=== PATIENT | male | born 2000 | race Two or more races ===

== ENCOUNTER 2020-09-23 14:05 | Outpatient (REF) | payer OTHER, SELFPAY | END 2020-09-23 14:06 | disposition home or self-care (01) | LOC: HO.LAB 14:05 | PROVIDERS: Visit Provider Internal Medicine | DX: Z20.828 Contact with and (suspected) exposure to other viral communicable diseases (principal) | CPT/HCPCS: C9803; U0003 ==

== ENCOUNTER 2021-01-15 10:04 | Emergency (ER) | payer OTHER, SELFPAY ==
[2021-01-15 10:27] VITALS: BP 139/89; PULSE 84; RESP 18; TEMP 36.9; O2SAT 97; BMI 32.8
--- NOTE | 2021-01-15 10:33 | ED.GENADULT ---
HPI - General Adult General Chief complaint: General Medical Stated complaint: COUGH FEVER Time Seen by Provider: 01/15/21 10:31 Source: patient Mode of arrival: ambulatory Limitations: no limitations History of Present Illness HPI narrative: 20-year-old male here with body aches, subjective fevers headaches x3 days. No chest pain, shortness of breath, cough, vomiting, diarrhea, abdominal pain. 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 Denies any known sick contacts Related Data Allergies Allergy/AdvReac Type Severity Reaction Status Date / Time No Known Allergies Allergy Unverified 06/30/20 16:40 Review of Systems Review of Systems: Yes all other systems are reviewed and are negative Constitutional: Constitutional: Reports no additional constitutional complaints, Reports body ache(s), Denies chills, Reports fever(s), Reports headache(s) and Denies weakness Eyes: Eyes: Reports no additional eye complaints and Denies change in vision ENT: Reports system reviewed and no additional complaints, except as documented, Denies dizziness, Reports headache(s), Denies nasal congestion, Denies nasal discharge and Denies neck pain Cardiovascular: Cardiovascular: Reports no additional cardiovascular complaints, Denies chest pain, Denies leg edema and Denies dyspnea Respiratory: Respiratory: Reports no additional respiratory complaints, Denies cough and Denies dyspnea Gastrointestinal: Gastrointestinal: Reports no additional gastrointestinal complaints, Denies abdominal pain, Denies diarrhea, Denies nausea and Denies vomiting Genitourinary: Genitourinary: Denies urinary incontinence Musculoskeletal: Musculoskeletal: Reports no additional musculoskeletal complaints, Denies back pain, Denies arthralgias, Denies joint swelling, Denies neck pain, Denies numbness and Denies tingling Integumentary/Breasts: Skin/Breast: Reports system reviewed and no additional complaints, except as docu and Denies rash Neurologic: Reports system reviewed and no additional complaints, except as documented, Denies Abnormal speech present, Denies dizziness, Reports headache(s), Denies numbness, Denies tingling and Denies weakness PMFSH Past Medical History Attestation statement: The following information was validated with the patient. Source: old records reviewed and nursing notes reviewed Medical History No known health problems Social History Social History Advance Directives: Yes Advance Directives Information Provided: No Advance Directives on File: No Physical Exam Vital Signs: Vital Signs: Last Vital Signs Temp 98.4 F 01/15/21 10:27 Pulse 84 01/15/21 10:27 Resp 18 01/15/21 10:27 BP 139/89 01/15/21 10:27 Pulse Ox 97 01/15/21 10:27 Body Mass Index 32.8 Const: General: cooperative, healthy appearing, comfortable and no acute distress Orientation/consciousness: patient oriented x3 Limitations: no limitations HENMT: Head: Yes normal to inspection Ears: hearing grossly normal bilaterally General nose exam: Normal external nose present Face and sinus: Yes normal facial exam Mouth: Normal oral and palatal mucosa present Throat: Yes posterior oropharynx normal Eyes: General: appearance normal, both eyes and all related structures Pupils: Equal, round and reactive pupils present Neck: Neck: Yes normal visual inspection Chest: Chest palpation & inspection: normal inspection of the chest Resp: Effort & Inspection: normal respiratory effort Auscultation: clear to auscultation bilaterally Cardio: Rate: regular rate Rhythm: regular rhythm Peripheral pulses: Peripheral pulses 2+ throughout GI: Inspection: Yes normal to inspection Palpation (GI): Soft to palpation and nontender Auscultation: normal bowel sounds Back/Spine/Pelvis: Thoracic/Lumbar Spine: thoracic and lumbar spine normal to inspection Skin: General skin exam: no rashes or lesions noted Neuro: General: patient oriented x3, no focal motor deficits and normal sensation to monofilament Cranial nerves: Yes Equal, round and reactive pupils present Cognition (Neuro): normal cognition Speech: No Abnormal speech present Gait exam (Neuro): Normal gait present Motor exam (neuro): 5/5 motor strength present throughout Extrem: General: Yes normal to inspection Course Course Course Narrative: flu like symptoms x 3 days. HD stable, well appearing. Will check COVID screen. 1130-COVID screen negative. Likely viral syndrome however ?false negative. Recommend repeat test in 3-4 days if continuing to have symptoms. reviewed worrisome signs.symptoms with patient and when to return to the ED. Comfortable with discharge home. Medical Decision Making Medical Records Medical records reviewed: Yes I reviewed the patient's medical records. Lab Data Lab results reviewed: Yes I reviewed the patient's lab results. Labs: Lab Results 01/15/21 Range/Units 10:39 COVID-19 ([facility]) Negative (Negative) COVID-19 Clin Com See Note Discharge Plan Discharge Clinical Impression: Viral infection Patient Disposition: Home, Self-Care Instructions: Viral Syndrome (ED) Additional Instructions: Increase fluids, rest Take Motrin or Tylenol if able as needed for pain or fever Your test today for COVID-19 was negative. However we recommend going home and quarantine and retesting and 3-4 days if you continue to have symptoms. This may be a false negative Referrals: Physician,Unknown [Primary Care Provider] - 2 days Stand Alone Forms: Work/School Release Interventions: ED Discharge Assessment Last Done: 01/15/21 11:42 Discharge Date/Time: 01/15/21 11:42
[2021-01-15 11:04] LABS: COVID-19 Test Negative (Negative); IDNOW Serial# 9DD0AD1C
== END 2021-01-15 11:42 | disposition home or self-care (01) ==
PROVIDERS: Nurse Practitioner Family; Emergency Provider Emergency Medicine
DX: B34.9 Viral infection, unspecified (principal); Z20.822 Contact with and (suspected) exposure to COVID-19; R05 Cough; R50.9 Fever, unspecified
CPT/HCPCS: 36415; 87635; 99283

== ENCOUNTER 2021-08-04 08:41 | Emergency (ER) | payer OTHER, SELFPAY ==
[2021-08-04 08:46] VITALS: BP 134/82; PULSE 70; RESP 18; TEMP 36.4; O2SAT 99; BMI 28.1
--- NOTE | 2021-08-04 09:04 | ED_ITS ---
HPI - Skin/Abscess/Foreign Bdy General Chief complaint: Skin/Abscess/Foreign Body Stated complaint: q tip stuck in ear Time Seen by Provider: 08/04/21 09:04 Source: patient Mode of arrival: ambulatory Limitations: no limitations History of Present Illness HPI narrative: qtip cotton left in his right ear Onset (ago): minute(s) Tetanus up to date: yes Severity: mild Pain Consistency: constant Associated symptoms: denies other symptoms Related Data Allergies Allergy/AdvReac Type Severity Reaction Status Date / Time No Known Allergies Allergy Unverified 06/30/20 16:40 Review of Systems Constitutional: Constitutional: Reports no additional constitutional complaints Eyes: Eyes: Reports no additional eye complaints ENT: Denies dizziness Cardiovascular: Cardiovascular: Reports no additional cardiovascular complaints Respiratory: Respiratory: Reports as per HPI Gastrointestinal: Gastrointestinal: Reports no additional gastrointestinal complaints Musculoskeletal: Musculoskeletal: Reports no additional musculoskeletal complaints Integumentary/Breasts: Skin/Breast: Denies rash Neurologic: Reports system reviewed and no additional complaints, except as documented, Denies dizziness and Denies Sensory deficit (Neuro) Psychiatric: Psychiatric: Denies anxiety [facility] Past Medical History Medical History No known health problems Social History Social History Advance Directives: No Physical Exam Vital Signs: Vital Signs: Last Vital Signs Temp 97.5 F 08/04/21 08:46 Pulse 70 08/04/21 08:46 Resp 18 08/04/21 08:46 BP 134/82 08/04/21 08:46 Pulse Ox 99 08/04/21 08:46 Body Mass Index 28.1 Const: General: healthy appearing Nutritional Appearance: average body habitus Orientation/consciousness: oriented to person and patient oriented x3 Limitations: no limitations HENMT: Other: right ear canal with cotton swab impacted Head: Yes normal to inspection Ears: external ears normal General nose exam: Normal external nose present Mouth: Normal oral and palatal mucosa present and oropharynx normal Throat: Yes posterior oropharynx normal Eyes: General: appearance normal, both eyes and all related structures Neck: Other: supple Neck: Yes normal visual inspection Chest: Chest palpation & inspection: normal inspection of the chest Resp: Auscultation: clear to auscultation bilaterally Cardio: Jugular venous distension: no JVD Rate: regular rate Rhythm: regular rhythm Heart sounds: S1 normal heart sound present and S2 normal heart sound present GI: Inspection: Yes normal to inspection Palpation (GI): Soft to palpation, nontender and No hepatosplenomegaly present Auscultation: normal bowel sounds : General: Yes no CVA tenderness Back/Spine/Pelvis: Back: no CVA tenderness Skin: General skin exam: no rashes or lesions noted Neuro: General: oriented to person and patient oriented x3 Cranial nerves: Yes CN's II-XII intact bilaterally Motor exam (neuro): 5/5 motor strength present throughout Sensory Exam: No Sensory deficit (Neuro) Extrem: General: Yes normal to inspection Psych: Appearance: grossly normal Procedures Procedure Narrative Procedure Narrative: With alligator forceps cotton swab removed, TM intact no bleeding Discharge Plan Discharge Clinical Impression: Ear foreign body Qualifiers: Encounter type: initial encounter Laterality: right Qualified Code(s): T16.1XXA - Foreign body in right ear, initial encounter Patient Disposition: Home, Self-Care Instructions: Ear Foreign Body (ED) Referrals: Physician,None [Primary Care Provider] - 10 days
== END 2021-08-04 09:27 | disposition home or self-care (01) ==
PROVIDERS: Emergency Provider Emergency Medicine
DX: T16.1XXA Foreign body in right ear, initial encounter (principal); H92.01 Otalgia, right ear; X58.XXXA Exposure to other specified factors, initial encounter; Y93.9 Activity, unspecified; Y92.9 Unspecified place or not applicable; Y99.9 Unspecified external cause status
CPT/HCPCS: 69200; 99283; 99284

== ENCOUNTER 2021-10-20 12:43 | Outpatient (REF) | payer OTHER, SELFPAY ==
[2021-10-20 13:32] LABS: Binax Internal Control QC Valid; Binax Now Covid-19 Ag Positive (Negative)
== END 2021-10-20 12:44 | disposition home or self-care (01) ==
LOC: HO.LAB 12:43
PROVIDERS: Visit Provider Internal Medicine
DX: Z20.822 Contact with and (suspected) exposure to COVID-19 (principal)
CPT/HCPCS: 36415; C9803

== ENCOUNTER 2024-05-13 08:47 | Emergency (ER) | payer OTHER, SELFPAY ==
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
[2024-05-13 08:52] VITALS: BP 143/85; PULSE 85; RESP 16; TEMP 36.6; O2SAT 97; BMI 31.2
[2024-05-13 08:54] VITALS: BP 143/85; PULSE 76; RESP 16; TEMP 36.9; O2SAT 99; BMI 31.2
[2024-05-13 08:59] VITALS: BP 143/85; PULSE 76; RESP 16; TEMP 36.9; O2SAT 99
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
[2024-05-13 12:08] VITALS: BP 143/85; PULSE 76; RESP 16; TEMP 36.9; O2SAT 99
== END 2024-05-13 12:10 | disposition home or self-care (01) ==
PROVIDERS: Emergency Provider Emergency Medicine
DX: S16.1XXA Strain of muscle, fascia and tendon at neck level, initial encounter (principal); M54.2 Cervicalgia; V43.62XA Car passenger injured in collision with other type car in traffic accident, initial encounter; Y93.89 Activity, other specified; Y92.488 Other paved roadways as the place of occurrence of the external cause; Y99.8 Other external cause status
CPT/HCPCS: 72040; 99283; 99284

== ENCOUNTER 2025-04-18 22:09 | Inpatient (IN) | payer OTHER, SELFPAY ==
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
[2025-04-18 22:42] VITALS: BP 138/102; BP 153/93; PULSE 114; PULSE 95; RESP 18; TEMP 37.1; O2SAT 97; BMI 29.8
[2025-04-18 22:49] LABS: MANUAL DIFF FLAG NO
[2025-04-18 22:50] LABS: Hematocrit 43.8 % (42.0-52.0); Hemoglobin 15.6 g/dl (14.0-18.0); Imm Gran Abs Auto 0.04 X10*3/uL (0.00-0.03); Imm Gran Pct Auto 0.5 % (0.0-0.4); Lymphocytes Absolute Auto 1.9 X10*3/uL (1.2-4.9); Mean Corpuscular HGB Conc 35.6 g/dl (31.0-36.0); Mean Corpuscular Hemoglobin 28.8 pg (27.0-33.0); Mean Corpuscular Volume 81.0 fL (80.0-98.0); NRBC Abs Auto 0.000 X10*3/uL (0.0-0.012); NRBC Pct Auto 0.0 /100WBC (0.0-0.2); Platelet Count 254 X10*3/uL (160-400); Red Blood Count 5.41 X10*6/uL (4.60-5.80); White Blood Count 8.3 X10*3/uL (4.8-10.8)
[2025-04-18 23:01] LABS: Cannabinoid Screen Urine POSITIVE (Not Detect)
[2025-04-18 23:11] LABS: Alanine Aminotransferase 93 U/L (0-40); Albumin Level 4.6 g/dL (3.5-5.0); Alkaline Phosphatase 144 U/L (39-117); Anion Gap 15 (12-20); Aspartate Amino Transferase 37 U/L (5-37); Blood Urea Nitrogen 22 mg/dL (9-16); Calcium 9.7 mg/dL (8.4-10.2); Carbon Dioxide 26 mmol/L (22-29); Chloride 107 mmol/L (96-108); Creatinine Clr Calc Pharmacy 103.8; Estimated Glomerular Filt Rate > 60; Potassium 3.7 mmol/L (3.3-5.1); Sodium 144 mmol/L (135-145); Total Protein 7.7 g/dL (6.5-8.0)
[2025-04-18 23:25] LABS: Thyroid Stimulating Hormone 2.45 uIU/mL (0.32-4.0)
--- NOTE | 2025-04-18 23:28 | PC.NURSE ---
Took over care from Sergey Kong, pt restless, medicated per Dec.
--- NOTE | 2025-04-19 09:24 | ECG_ITS ---
Test Reason : med clearance Blood Pressure : */* mmHG Vent. Rate : 70 BPM Atrial Rate : 70 BPM P-R Int : 180 ms QRS Dur : 92 ms QT Int : 396 ms P-R-T Axes : 55 -5 23 degrees QTcB Int : 427 ms Normal sinus rhythm with sinus arrhythmia Incomplete right bundle branch block Minimal voltage criteria for LVH, may be normal variant ( R in aVL ) Borderline ECG No previous ECGs available Referred By: Bartolo Schmitt Electronically Signed By: Tanner Domingo
--- NOTE | 2025-04-19 09:37 | PC.NURSE ---
Medications verified with pharmacist at [facility] [place]
[2025-04-19 11:49] LABS: Appearance Urine Clear; Glucose Urine UA Negative (Negative); PH 6.5 (5.0-9.0); Specific Gravity - Urine 1.020 (1.005-1.025)
[2025-04-19 12:36] VITALS: BP 139/78; PULSE 88; RESP 14; TEMP 37.1; O2SAT 96
--- NOTE | 2025-04-19 13:12 | PC.NURSE ---
Report called to BENITA Dent on M3.
[2025-04-19 13:40] VITALS: BP 139/92; PULSE 83; RESP 16; TEMP 36.6; O2SAT 95
[2025-04-19 14:04] VITALS: BMI 29.9
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
[2025-04-19 19:52] VITALS: BP 123/83; PULSE 83; RESP 16; TEMP 36.2; O2SAT 95
[2025-04-20 07:34] VITALS: BP 107/68; PULSE 92; RESP 16; TEMP 36.4; O2SAT 94
[2025-04-20 08:19] LABS: Hemoglobin A1C 155.1714 umol/L; Total Hemoglobin (HGBA1C) 4141.0710 umol/L
[2025-04-20 08:22] LABS: Alanine Aminotransferase 77 U/L (0-40); Albumin Level 4.5 g/dL (3.5-5.0); Alkaline Phosphatase 138 U/L (39-117); Anion Gap 12 (12-20); Aspartate Amino Transferase 37 U/L (5-37); Blood Urea Nitrogen 18 mg/dL (9-16); Calcium 9.9 mg/dL (8.4-10.2); Carbon Dioxide 29 mmol/L (22-29); Chloride 103 mmol/L (96-108); Cholesterol 208 mg/dL (<200); Creatinine Clr Calc Pharmacy 99.6; Estimated Glomerular Filt Rate > 60; HDL Cholesterol 35 mg/dL (>40); Potassium 4.0 mmol/L (3.3-5.1); Sodium 140 mmol/L (135-145); Total Protein 7.3 g/dL (6.5-8.0); Triglycerides 164 mg/dL (<150)
--- NOTE | 2025-04-20 09:53 | P.PNPSI_ITS ---
Subjective Subjective Date of Service: 04/20/25 Reason For Visit: SI Subjective Notes: Conditional Voluntary Interim History: Active on unit, attending groups. Patient continues to report feeling depressed; pt stated, I'm still mad at my mom. I'm tired of feeling like I don't matter to her . pt continues to report suicidal ideation with plan on jumping in river. denies HI/VH/AH. Discussed starting on [place]; risks/benefits reviewed, pt agreed to trial. Start: [place] ER 300mg PO bedtime. Medication Compliance: Yes Side effects from medications: No Attending Groups: Yes Mental Status Exam Mental Status Exam Narrative: Pt is alert and oriented; behavior is cooperative and calm; dressed in casual attire; mood is described as depressed ; eye contact appropriate; Speech is normal rate, volume and not pressured; thought process is organized; Thought content is on tx; denies HI/VH/AH. Pt reports suicidal ideation with plan. Diagnostics Vital Signs (24Hr): Vital Signs - 24 hr 04/19/25 12:36 04/19/25 13:40 04/19/25 19:52 Temperature 98.8 F 97.9 F 97.2 F Pulse Rate 88 83 83 Respiratory Rate 14 16 16 Blood Pressure 139/78 139/92 H 123/83 Pulse Oximetry 96 95 95 Oxygen Delivery Method Room Air Room Air Room Air 04/20/25 07:34 Temperature 97.6 F Pulse Rate 92 Respiratory Rate 16 Blood Pressure 107/68 Pulse Oximetry 94 Oxygen Delivery Method Room Air BMI result Body Mass Index 29.9 Labs 04/18/25 22:42 04/20/25 07:56 Labs: Laboratory Results - last 48 hr 04/18/25 04/20/25 22:42 07:56 WBC 8.3 RBC 5.41 Hgb 15.6 Hct 43.8 MCV 81.0 MCH 28.8 MCHC 35.6 RDW 12.8 Plt Count 254 MPV 10.6 Immature Gran % (Auto) 0.5 H Neut % (Auto) 68.8 Lymph % (Auto) 22.6 [place] % (Auto) 6.3 Eos % (Auto) 1.3 Baso % (Auto) 0.5 Lymph # (Auto) 1.9 [place] # (Auto) 0.5 Eos # (Auto) 0.1 Baso # (Auto) 0.0 Abs Immat Gran (auto) 0.04 H Absolute Neuts (auto) 5.7 Absolute Nucleated RBC 0.000 Nucleated RBC % (auto) 0.0 Sodium 144 140 Potassium 3.7 4.0 Chloride 107 103 Carbon Dioxide 26 29 Anion Gap 15 12 BUN 22 H 18 H Creatinine 1.13 1.18 Estim Creat Clear Calc 103.8 99.6 Estimated GFR > 60 > 60 Random Glucose 102 100 Estimat Average Glucose 114 Hemoglobin A1c % 5.6 Calcium 9.7 9.9 Total Bilirubin 0.5 1.3 H AST 37 37 ALT 93 H 77 H Alkaline Phosphatase 144 H 138 H Total Protein 7.7 7.3 Albumin 4.6 4.5 Triglycerides 164 H Cholesterol 208 H LDL Cholesterol, Calc 141 H HDL Cholesterol 35 L TSH 2.45 Urine Color Yellow Urine Appearance Clear Urine pH 6.5 Ur Specific [place] 1.020 Urine Protein Trace Urine Glucose (UA) Negative Urine Ketones Trace Urine Blood Negative Urine Nitrite Negative Ur Leukocyte Esterase Negative Urine Opiates Screen Not Detected Ur Buprenorphine Scrn Not Detected Ur Oxycodone Screen Not Detected Urine Methadone Screen Not Detected Urine Fentanyl Screen Not Detected Ur Barbiturates Screen Not Detected Ur Phencyclidine Scrn Not Detected Ur Amphetamines Screen Not Detected U Benzodiazepines Scrn Not Detected Urine Cocaine Screen Not Detected U Marijuana (THC) Screen POSITIVE H Ethyl Alcohol < 10 Imaging Radiology Impressions: ITS Impressions Hand X-Ray 04/19/25 15:12 IMPRESSION: Normal right hand. Electronically signed by: Juan A Dwyer MD 04/19/2025 04:19 PM EDT RP Medications Medications Current Medications Acetaminophen (Acetaminophen 325 Mg Tablet) 650 mg PO Q6H PRN PRN Reason: Headache/Pain, Scale 1-10 Al Hydroxide/Mg Hydroxide (Magnesium Hydrox/Alum Hydrox 30 Ml Oral.Susp) 30 ml PO Q6H PRN PRN Reason: Heartburn/Nausea Hydroxyzine HCl (Hydroxyzine Hcl 25 Mg Tablet) 25 mg PO Q6H PRN PRN Reason: mild anxiety Last Admin: 04/19/25 17:21 Dose: 25 mg Ibuprofen (Ibuprofen 800 Mg Tablet) 800 mg PO Q8H PRN PRN Reason: Pain, Severe (Pain Scale 7-10) Magnesium Hydroxide (Milk Of Magnesia 30 Ml Oral.Susp) 30 ml PO DAILY PRN PRN Reason: Constipation Melatonin (Melatonin 3 Mg Tablet) 6 mg PO BEDTIME PRN PRN Reason: Insomnia Nicotine Polacrilex (Nicotine Polacrilex 2 Mg Gum) 4 mg BUCCAL Q2H PRN PRN Reason: Nicotine Cravings Non-Formulary Medication (Dexmethylphenidate) 2.5 mg PO DAILY URSZULA Quetiapine Fumarate (Quetiapine Fumarate 50 Mg Tablet) 50 mg PO BID PRN PRN Reason: Anxiety Last Admin: 04/19/25 17:21 Dose: 50 mg Quetiapine Fumarate (Quetiapine Fumarate 200 Mg Tablet) 200 mg PO BEDTIME URSZULA Last Admin: 04/19/25 21:36 Dose: 200 mg Trazodone HCl (Trazodone Hcl 50 Mg Tablet) 50 mg PO BEDTIME MRX1 PRN PRN Reason: Insomnia Allergies Allergies Allergy/AdvReac Type Severity Reaction Status Date / Time No Known Allergies Allergy Verified 04/18/25 22:44 Assessment & Plan Assessment & Plan (1) Bipolar disorder: Status: Acute Code(s): F31.9 - Bipolar disorder, unspecified (2) PTSD (post-traumatic stress disorder): Status: Acute Code(s): F43.10 - Post-traumatic stress disorder, unspecified Plan Patient is a 24-year-old male with history of bipolar disorder who was brought in by ambulance to ER due to suicidal ideation with a plan to drown himself in a nearby river secondary to a family argument. Plan: CV 15 minute safety checks Continue home medications Xray of right hand d/t pt reporting punching wall after phone call with mother prior to coming up to unit. Obtain collateral Referral to outpatient psychiatric providers Encourage groups Discharge planning 04/20: Active on unit, attending groups. Patient continues to report feeling depressed; pt stated, I'm still mad at my mom. I'm tired of feeling like I don't matter to her . pt continues to report suicidal ideation with plan on jumping in river. denies HI/VH/AH. Discussed starting on [place]; risks/benefits reviewed, pt agreed to trial. Start: [place] ER 300mg PO bedtime. X-ray of right hand results were normal; please see report. Patient educated on: diagnosis, medication risk/benefits and therapeutic strategies Reason for continued inpatient stay Substantial Risk for: harm to self and med/psych decompensation Time Spent With Patient Time: Total time managing care of this patient today _30___ minutes.
[2025-04-20 20:00] VITALS: BP 124/83; PULSE 89; RESP 16; TEMP 36.6; O2SAT 96
[2025-04-21 07:20] VITALS: BP 110/65; PULSE 69; RESP 18; TEMP 36.9; O2SAT 98
--- NOTE | 2025-04-21 14:50 | HO.PSYCHPN ---
Subjective Subjective Date of Service: 04/21/25 Reason For Visit: SI Subjective Notes: Conditional Voluntary Interim History: Active on unit, attending groups. social with peers. Patient continues to report feeling depressed; patient discussed he does not plan to return to his mothers home but will either stay with his aunt or cousin. pt stated, No one cares about me . T/W and outreach and education social worker discussed how his mother has been calling daily to check on him and family are offering to let pt stay with them. Patient became upset regarding this topic and left office, slamming door behind him. pt continues to report suicidal ideation with plan on jumping in river. denies HI/VH/AH. denies side effects from starting [place]. Per outreach and education social worker who spoke to patients mother; pt relayed to his mother, he plans on bolting off unit to be able to go to the [employer] on Saturday. pt placed on 5 minute safety checks and fresh air restrictions. Medication Compliance: Yes Side effects from medications: No Attending Groups: Yes Mental Status Exam Mental Status Exam Narrative: Pt is alert and oriented; behavior is cooperative and calm; dressed in casual attire; mood is described as depressed , irritable; eye contact appropriate; Speech is normal rate, volume and not pressured; thought process is organized; Thought content is on tx; denies HI/VH/AH. Pt reports suicidal ideation with plan. Diagnostics Vital Signs (24Hr): Vital Signs - 24 hr 04/20/25 20:00 04/21/25 07:20 Temperature 97.9 F 98.4 F Pulse Rate 89 69 Respiratory Rate 16 18 Blood Pressure 124/83 110/65 Pulse Oximetry 96 98 Oxygen Delivery Method Room Air Room Air BMI result Body Mass Index 29.9 Labs 04/18/25 22:42 04/20/25 07:56 Labs: Laboratory Results - last 48 hr 04/20/25 07:56 Sodium 140 Potassium 4.0 Chloride 103 Carbon Dioxide 29 Anion Gap 12 BUN 18 H Creatinine 1.18 Estim Creat Clear Calc 99.6 Estimated GFR > 60 Random Glucose 100 Estimat Average Glucose 114 Hemoglobin A1c % 5.6 Calcium 9.9 Total Bilirubin 1.3 H AST 37 ALT 77 H Alkaline Phosphatase 138 H Total Protein 7.3 Albumin 4.5 Triglycerides 164 H Cholesterol 208 H LDL Cholesterol, Calc 141 H HDL Cholesterol 35 L Imaging Radiology Impressions: ITS Impressions Hand X-Ray 04/19/25 15:12 IMPRESSION: Normal right hand. Electronically signed by: Juan A Dwyer MD 04/19/2025 04:19 PM EDT RP Medications Medications Current Medications Acetaminophen (Acetaminophen 325 Mg Tablet) 650 mg PO Q6H PRN PRN Reason: Headache/Pain, Scale 1-10 Al Hydroxide/Mg Hydroxide (Magnesium Hydrox/Alum Hydrox 30 Ml Oral.Susp) 30 ml PO Q6H PRN PRN Reason: Heartburn/Nausea Hydroxyzine HCl (Hydroxyzine Hcl 25 Mg Tablet) 25 mg PO Q6H PRN PRN Reason: mild anxiety Last Admin: 04/21/25 10:06 Dose: 25 mg Ibuprofen (Ibuprofen 800 Mg Tablet) 800 mg PO Q8H PRN PRN Reason: Pain, Severe (Pain Scale 7-10) [place] Carbonate ([place] Carbonate Er 300 Mg Tablet.Er) 300 mg PO BEDTIME URSZULA Last Admin: 04/20/25 21:34 Dose: 300 mg Magnesium Hydroxide (Milk Of Magnesia 30 Ml Oral.Susp) 30 ml PO DAILY PRN PRN Reason: Constipation Melatonin (Melatonin 3 Mg Tablet) 6 mg PO BEDTIME PRN PRN Reason: Insomnia Last Admin: 04/20/25 21:34 Dose: 6 mg Nicotine Polacrilex (Nicotine Polacrilex 2 Mg Gum) 4 mg BUCCAL Q2H PRN PRN Reason: Nicotine Cravings Non-Formulary Medication (Dexmethylphenidate) 2.5 mg PO DAILY URSZULA Quetiapine Fumarate (Quetiapine Fumarate 50 Mg Tablet) 50 mg PO BID PRN PRN Reason: Anxiety Last Admin: 04/21/25 11:20 Dose: 50 mg Quetiapine Fumarate (Quetiapine Fumarate 200 Mg Tablet) 200 mg PO BEDTIME URSZULA Last Admin: 04/20/25 21:35 Dose: 200 mg Trazodone HCl (Trazodone Hcl 50 Mg Tablet) 50 mg PO BEDTIME MRX1 PRN PRN Reason: Insomnia Allergies Allergies Allergy/AdvReac Type Severity Reaction Status Date / Time No Known Allergies Allergy Verified 04/18/25 22:44 Assessment & Plan Assessment & Plan (1) Bipolar disorder: Status: Acute Code(s): F31.9 - Bipolar disorder, unspecified (2) PTSD (post-traumatic stress disorder): Status: Acute Code(s): F43.10 - Post-traumatic stress disorder, unspecified Plan Patient is a 24-year-old male with history of bipolar disorder who was brought in by ambulance to ER due to suicidal ideation with a plan to drown himself in a nearby river secondary to a family argument. Plan: CV 15 minute safety checks Continue home medications Xray of right hand d/t pt reporting punching wall after phone call with mother prior to coming up to unit. Obtain collateral Referral to outpatient psychiatric providers Encourage groups Discharge planning 04/20: Active on unit, attending groups. Patient continues to report feeling depressed; pt stated, I'm still mad at my mom. I'm tired of feeling like I don't matter to her . pt continues to report suicidal ideation with plan on jumping in river. denies HI/VH/AH. Discussed starting on [place]; risks/benefits reviewed, pt agreed to trial. Start: [place] ER 300mg PO bedtime. X-ray of right hand results were normal; please see report. 04/21: Active on unit, attending groups. social with peers. Patient continues to report feeling depressed; patient discussed he does not plan to return to his mothers home but will either stay with his aunt or cousin. pt stated, No one cares about me . T/W and outreach and education social worker discussed how his mother has been calling daily to check on him and family are offering to let pt stay with them. Patient became upset regarding this topic and left office, slamming door behind him. pt continues to report suicidal ideation with plan on jumping in river. denies HI/VH/AH. denies side effects from starting [place]. Per outreach and education social worker who spoke to patients mother; pt relayed to his mother, he plans on bolting off unit to be able to go to the movies on Saturday. pt placed on 5 minute safety checks and fresh air restrictions. Patient educated on: diagnosis, medication risk/benefits and therapeutic strategies Reason for continued inpatient stay Substantial Risk for: harm to self and med/psych decompensation Time Spent With Patient Time: Total time managing care of this patient today _20___ minutes.
[2025-04-21 19:30] VITALS: BP 130/85; PULSE 90; RESP 16; TEMP 37.1; O2SAT 99
[2025-04-22 07:00] VITALS: BMI 32.1
[2025-04-22 07:50] VITALS: BP 119/68; PULSE 88; RESP 18; TEMP 36.7
--- NOTE | 2025-04-22 13:54 | P.PNPSI_ITS ---
Subjective Subjective Date of Service: 04/22/25 Reason For Visit: SI Subjective Notes: Conditional Voluntary Interim History: Active on unit, attending groups. social with peers. Patient reports feeling better today; pt stated, I think the medication is helping. I'm feeling better. I want to go to my cousin's on Saturday. I plan on staying with my aunt in [place] and she's going to help me find a job . pt reports he is no longer feeling suicidal; pt stated, I don't want to . I got people to live for. I don't want to hurt my family . denies SI/HI/VH/AH. Continue current tx plan. Medication Compliance: Yes Side effects from medications: No Attending Groups: Yes Mental Status Exam Mental Status Exam Narrative: Pt is alert and oriented; behavior is cooperative and calm; dressed in casual attire; mood is described as better ; eye contact appropriate; Speech is normal rate, volume and not pressured; thought process is organized; Thought content is on tx; denies SI/HI/VH/AH. Diagnostics Vital Signs (24Hr): Vital Signs - 24 hr 04/21/25 19:30 04/22/25 07:50 Temperature 98.8 F 98.1 F Pulse Rate 90 88 Respiratory Rate 16 18 Blood Pressure 130/85 119/68 Pulse Oximetry 99 Oxygen Delivery Method Room Air Room Air BMI result Body Mass Index 32.1 Labs 04/18/25 22:42 04/20/25 07:56 Imaging Radiology Impressions: ITS Impressions Hand X-Ray 04/19/25 15:12 IMPRESSION: Normal right hand. Electronically signed by: Juan A Dwyer MD 04/19/2025 04:19 PM EDT Medications Medications Current Medications Acetaminophen (Acetaminophen 325 Mg Tablet) 650 mg PO Q6H PRN PRN Reason: Headache/Pain, Scale 1-10 Al Hydroxide/Mg Hydroxide (Magnesium Hydrox/Alum Hydrox 30 Ml Oral.Susp) 30 ml PO Q6H PRN PRN Reason: Heartburn/Nausea Hydroxyzine HCl (Hydroxyzine Hcl 25 Mg Tablet) 25 mg PO Q6H PRN PRN Reason: mild anxiety Last Admin: 04/21/25 10:06 Dose: 25 mg Ibuprofen (Ibuprofen 800 Mg Tablet) 800 mg PO Q8H PRN PRN Reason: Pain, Severe (Pain Scale 7-10) [place] Carbonate ([place] Carbonate Er 300 Mg Tablet.Er) 300 mg PO BEDTIME URSZULA Last Admin: 04/21/25 21:10 Dose: 300 mg Magnesium Hydroxide (Milk Of Magnesia 30 Ml Oral.Susp) 30 ml PO DAILY PRN PRN Reason: Constipation Melatonin (Melatonin 3 Mg Tablet) 6 mg PO BEDTIME PRN PRN Reason: Insomnia Last Admin: 04/21/25 21:11 Dose: 6 mg Nicotine Polacrilex (Nicotine Polacrilex 2 Mg Gum) 4 mg BUCCAL Q2H PRN PRN Reason: Nicotine Cravings Non-Formulary Medication (Dexmethylphenidate) 2.5 mg PO DAILY URSZULA Quetiapine Fumarate (Quetiapine Fumarate 50 Mg Tablet) 50 mg PO BID PRN PRN Reason: Anxiety Last Admin: 04/21/25 11:20 Dose: 50 mg Quetiapine Fumarate (Quetiapine Fumarate 200 Mg Tablet) 200 mg PO BEDTIME URSZULA Last Admin: 04/21/25 21:10 Dose: 200 mg Trazodone HCl (Trazodone Hcl 50 Mg Tablet) 50 mg PO BEDTIME MRX1 PRN PRN Reason: Insomnia Allergies Allergies Allergy/AdvReac Type Severity Reaction Status Date / Time No Known Allergies Allergy Verified 04/18/25 22:44 Assessment & Plan Assessment & Plan (1) Bipolar disorder: Status: Acute Code(s): F31.9 - Bipolar disorder, unspecified (2) PTSD (post-traumatic stress disorder): Status: Acute Code(s): F43.10 - Post-traumatic stress disorder, unspecified Plan Patient is a 24-year-old male with history of bipolar disorder who was brought in by ambulance to ER due to suicidal ideation with a plan to d[place] himself in a nearby river secondary to a family argument. Plan: CV 15 minute safety checks Continue home medications Xray of right hand d/t pt reporting punching wall after phone call with mother prior to coming up to unit. Obtain collateral Referral to outpatient psychiatric providers Encourage groups Discharge planning 04/20: Active on unit, attending groups. Patient continues to report feeling depressed; pt stated, I'm still mad at my mom. I'm tired of feeling like I don't matter to her . pt continues to report suicidal ideation with plan on jumping in river. denies HI/VH/AH. Discussed starting on [place]; risks/benefits reviewed, pt agreed to trial. Start: [place] ER 300mg PO bedtime. X-ray of right hand results were normal; please see report. 04/21: Active on unit, attending groups. social with peers. Patient continues to report feeling depressed; patient discussed he does not plan to return to his mothers home but will either stay with his aunt or cousin. pt stated, No one cares about me . T/W and social and political studies professor discussed how his mother has been calling daily to check on him and family are offering to let pt stay with them. Patient became upset regarding this topic and left office, slamming door behind him. pt continues to report suicidal ideation with plan on jumping [place] river. denies HI/VH/AH. denies side effects from starting [place]. Per social and political studies professor who spoke to patients mother; pt relayed to his mother, he plans on bolting off unit to be able to go to the movies on Saturday. pt placed on 5 minute safety checks and fresh air restrictions. 04/22: Active on unit, attending groups. social with peers. Patient reports feeling better today; pt stated, I think the medication is helping. I'm feeling better. I want to go to my cousin's on Saturday. I plan on staying with my aunt in [place] and she's going to help me find a job . pt reports he is no longer feeling suicidal; pt stated, I don't want to . I got people to live for. I don't want to hurt my family . denies SI/HI/VH/AH. Continue current tx plan. Patient educated on: diagnosis, medication risk/benefits and therapeutic strategies Reason for continued inpatient stay Substantial Risk for: med/psych decompensation Time Spent With Patient Time: Total time managing care of this patient today _20___ minutes.
[2025-04-22 19:30] VITALS: BP 110/74; PULSE 83; RESP 18; TEMP 36.7; O2SAT 96
[2025-04-23 07:30] VITALS: BP 107/63; PULSE 80; RESP 16; TEMP 36.4; O2SAT 97
--- NOTE | 2025-04-23 08:49 | HO.PSYCHPN ---
Subjective Subjective Date of Service: 04/23/25 Reason For Visit: SI Subjective Notes: Conditional Voluntary Interim History: Patient reports feeling good today; pt stated, my dad came to visit me yesterday. I was very appreciative of him visiting. I'm trying to keep a positive mindset . denies SI/HI/VH/AH. labs ordered for Saturday. pt placed on 15 minute safety checks. DC fresh air restriction. Continue current tx plan. Medication Compliance: Yes Side effects from medications: No Attending Groups: Yes Mental Status Exam Mental Status Exam Narrative: Pt is alert and oriented; behavior is cooperative and calm; dressed in casual attire; mood is described as good ; eye contact appropriate; Speech is normal rate, volume and not pressured; thought process is organized; Thought content is on tx/discharge; denies SI/HI/VH/AH. Diagnostics Vital Signs (24Hr): Vital Signs - 24 hr 04/22/25 19:30 04/23/25 07:30 Temperature 98.1 F 97.5 F Pulse Rate 83 80 Respiratory Rate 18 16 Blood Pressure 110/74 107/63 Pulse Oximetry 96 97 Oxygen Delivery Method Room Air Room Air BMI result Body Mass Index 32.1 Labs 04/18/25 22:42 04/20/25 07:56 Imaging Radiology Impressions: ITS Impressions Hand X-Ray 04/19/25 15:12 IMPRESSION: Normal right hand. Electronically signed by: Juan A Dwyer MD 04/19/2025 04:19 PM EDT RP Medications Medications Current Medications Acetaminophen (Acetaminophen 325 Mg Tablet) 650 mg PO Q6H PRN PRN Reason: Headache/Pain, Scale 1-10 Al Hydroxide/Mg Hydroxide (Magnesium Hydrox/Alum Hydrox 30 Ml Oral.Susp) 30 ml PO Q6H PRN PRN Reason: Heartburn/Nausea Hydroxyzine HCl (Hydroxyzine Hcl 25 Mg Tablet) 25 mg PO Q6H PRN PRN Reason: mild anxiety Last Admin: 04/22/25 15:07 Dose: 25 mg Ibuprofen (Ibuprofen 800 Mg Tablet) 800 mg PO Q8H PRN PRN Reason: Pain, Severe (Pain Scale 7-10) [place] Carbonate ([place] Carbonate Er 300 Mg Tablet.Er) 300 mg PO BEDTIME URSZULA Last Admin: 04/22/25 21:49 Dose: 300 mg Magnesium Hydroxide (Milk Of Magnesia 30 Ml Oral.Susp) 30 ml PO DAILY PRN PRN Reason: Constipation Melatonin (Melatonin 3 Mg Tablet) 6 mg PO BEDTIME PRN PRN Reason: Insomnia Last Admin: 04/22/25 21:46 Dose: 6 mg Nicotine Polacrilex (Nicotine Polacrilex 2 Mg Gum) 4 mg BUCCAL Q2H PRN PRN Reason: Nicotine Cravings Quetiapine Fumarate (Quetiapine Fumarate 50 Mg Tablet) 50 mg PO BID PRN PRN Reason: Anxiety Last Admin: 04/22/25 21:49 Dose: 50 mg Quetiapine Fumarate (Quetiapine Fumarate 200 Mg Tablet) 200 mg PO BEDTIME URSZULA Last Admin: 04/22/25 21:49 Dose: 200 mg Trazodone HCl (Trazodone Hcl 50 Mg Tablet) 50 mg PO BEDTIME MRX1 PRN PRN Reason: Insomnia Allergies Allergies Allergy/AdvReac Type Severity Reaction Status Date / Time No Known Allergies Allergy Verified 04/18/25 22:44 Assessment & Plan Assessment & Plan (1) Bipolar disorder: Status: Acute Code(s): F31.9 - Bipolar disorder, unspecified (2) PTSD (post-traumatic stress disorder): Status: Acute Code(s): F43.10 - Post-traumatic stress disorder, unspecified Plan Patient is a 24-year-old male with history of bipolar disorder who was brought in by ambulance to ER due to suicidal ideation with a plan to drown himself in a nearby river secondary to a family argument. Plan: CV 15 minute safety checks Continue home medications Xray of right hand d/t pt reporting punching wall after phone call with mother prior to coming up to unit. Obtain collateral Referral to outpatient psychiatric providers Encourage groups Discharge planning 04/20: Active on unit, attending groups. Patient continues to report feeling depressed; pt stated, I'm still mad at my mom. I'm tired of feeling like I don't matter to her . pt continues to report suicidal ideation with plan on jumping in river. denies HI/VH/AH. Discussed starting on [place]; risks/benefits reviewed, pt agreed to trial. Start: [place] ER 300mg PO bedtime. X-ray of right hand results were normal; please see report. 04/21: Active on unit, attending groups. social with peers. Patient continues to report feeling depressed; patient discussed he does not plan to return to his mothers home but will either stay with his aunt or cousin. pt stated, No one cares about me . T/W and social work coordinator discussed how his mother has been calling daily to check on him and family are offering to let pt stay with them. Patient became upset regarding this topic and left office, slamming door behind him. pt continues to report suicidal ideation with plan on jumping in river. denies HI/VH/AH. denies side effects from starting [place]. Per social work coordinator who spoke to patients mother; pt relayed to his mother, he plans on bolting off unit to be able to go to [place] [employer] on Saturday. pt placed on 5 minute safety checks and fresh air restrictions. 04/22: Active on unit, attending groups. social with peers. Patient reports feeling better today; pt stated, I think the medication is helping. I'm feeling better. I want to go to my cousin's on Saturday. I plan on staying with my aunt in [place] and she's going to help me find a job . pt reports he is no longer feeling suicidal; pt stated, I don't want to . I got people to live for. I don't want to hurt my family . denies SI/HI/VH/AH. Continue current tx plan. 04/23: Patient reports feeling good today; pt stated, my dad came to visit me yesterday. I was very appreciative of him visiting. I'm trying to keep a positive mindset . denies SI/HI/VH/AH. labs ordered for Saturday. pt placed on 15 minute safety checks. DC fresh air restriction. Continue current tx plan. Patient educated on: diagnosis and medication risk/benefits Reason for continued inpatient stay Substantial Risk for: med/psych decompensation Time Spent With Patient Time: Total time managing care of this patient today _20___ minutes.
[2025-04-23 19:44] VITALS: BP 128/79; PULSE 88; RESP 16; TEMP 36.9; O2SAT 97
[2025-04-24 08:00] VITALS: BP 109/60; PULSE 78; RESP 20; TEMP 36.4; O2SAT 99
[2025-04-24 20:00] VITALS: BP 137/85; PULSE 79; RESP 16; TEMP 36.9; O2SAT 98
--- NOTE | 2025-04-24 22:35 | P.PNPSI_ITS ---
Subjective Subjective Date of Service: 04/24/25 Reason For Visit: SI Subjective Notes: Conditional Voluntary Healthcare Proxy: No Guardianship: No Medical Problems Affecting Mental Status: No Interim History: Medical record and nursing notes reviewed; case discussed during rounds with team/nursing staff, and met with patient for supportive therapy/psychoeducation, as well as medication management. Patient self reports slept until 03:00 and has been up since then, , mood is good with a little bit anxious . Reports he was irritated by 1 of the female peers who is very hyperverbal and intrusive earlier prior to seeing this provider. However he was able to stay away from that person, went to his room, and took shower as his coping skills. He reports taking Seroquel 250 mg at bedtime but only schedule here at 200 which he take additional p.r.n. 50 with that last night. Denies other safety concerns. Upon discharge, he would thing he will stay with his cousin in with [place]. Currently he can not return to his family Medication Compliance: Yes Side effects from medications: No Attending Groups: Intermittent Review of Systems Acute medical concerns: No Medical Review of Systems: unchanged Review of Systems Review of Systems Yes all other systems are reviewed and are negative Constitutional: Reports no additional constitutional complaints Eyes: Reports no additional eye complaints Denies dizziness Cardiovascular: Reports no additional cardiovascular complaints Respiratory: Reports as per HPI Gastrointestinal: Reports no additional gastrointestinal complaints Musculoskeletal: Reports no additional musculoskeletal complaints Skin/Breast: Denies rash Reports system reviewed and no additional complaints, except as documented, Denies dizziness and Denies Sensory deficit (Neuro) Psychiatric: Denies anxiety Mental Status Exam Mental Status Exam Narrative: Pt is alert and oriented; behavior is cooperative and calm but was slightly irritable being triggered by one of the peers who is hyper verbal and intrusive appears stated age, dressed in casual attire; mood is described as a live with anxious but could ; eye contact appropriate; Speech is normal rate, volume and not pressured; thought process is organized; Thought content is WNL, VH/AH. Diagnostics Vital Signs (24Hr): Vital Signs - 24 hr 04/24/25 08:00 04/24/25 20:00 Temperature 97.5 F 98.5 F Pulse Rate 78 79 Respiratory Rate 20 16 Blood Pressure 109/60 137/85 Pulse Oximetry 99 98 Oxygen Delivery Method Room Air Room Air BMI result Body Mass Index 32.1 Labs 04/18/25 22:42 04/20/25 07:56 Imaging Radiology Impressions: ITS Impressions Hand X-Ray 04/19/25 15:12 IMPRESSION: Normal right hand. Electronically signed by: Juan A Dwyer MD 04/19/2025 04:19 PM EDT RP Medications Medications Current Medications Acetaminophen (Acetaminophen 325 Mg Tablet) 650 mg PO Q6H PRN PRN Reason: Headache/Pain, Scale 1-10 Al Hydroxide/Mg Hydroxide (Magnesium Hydrox/Alum Hydrox 30 Ml Oral.Susp) 30 ml PO Q6H PRN PRN Reason: Heartburn/Nausea Hydroxyzine HCl (Hydroxyzine Hcl 25 Mg Tablet) 25 mg PO Q6H PRN PRN Reason: mild anxiety Last Admin: 04/23/25 21:14 Dose: 25 mg [place] Carbonate ([place] Carbonate Er 300 Mg Tablet.Er) 300 mg PO BEDTIME URSZULA Last Admin: 04/23/25 22:13 Dose: 300 mg Magnesium Hydroxide (Milk Of Magnesia 30 Ml Oral.Susp) 30 ml PO DAILY PRN PRN Reason: Constipation Melatonin (Melatonin 3 Mg Tablet) 9 mg PO BEDTIME PRN PRN Reason: Insomnia Nicotine Polacrilex (Nicotine Polacrilex 2 Mg Gum) 4 mg BUCCAL Q2H PRN PRN Reason: Nicotine Cravings Quetiapine Fumarate (Quetiapine Fumarate 50 Mg Tablet) 50 mg PO BID PRN PRN Reason: Anxiety Last Admin: 04/23/25 22:15 Dose: 50 mg Quetiapine Fumarate 200 mg/ (Quetiapine Fumarate 50 mg) 250 mg PO BEDTIME URSZULA Trazodone HCl (Trazodone Hcl 50 Mg Tablet) 50 mg PO BEDTIME MRX1 PRN PRN Reason: Insomnia Allergies Allergies Allergy/AdvReac Type Severity Reaction Status Date / Time No Known Allergies Allergy Verified 04/18/25 22:44 Assessment & Plan Assessment & Plan (1) Bipolar disorder: Status: Acute Code(s): F31.9 - Bipolar disorder, unspecified (2) PTSD (post-traumatic stress disorder): Status: Acute Code(s): F43.10 - Post-traumatic stress disorder, unspecified Plan Patient is a 24-year-old male with history of bipolar disorder who was brought in by ambulance to ER due to suicidal ideation with a plan to drown himself in a nearby river secondary to a family argument. Plan: CV 15 minute safety checks Continue home medications Xray of right hand d/t pt reporting punching wall after phone call with mother prior to coming up to unit. Obtain collateral Referral to outpatient psychiatric providers Encourage groups Discharge planning 04/20: Active on unit, attending groups. Patient continues to report feeling depressed; pt stated, I'm still mad at my mom. I'm tired of feeling like I don't matter to her . pt continues to report suicidal ideation with plan on jumping [place] river. denies HI/VH/AH. Discussed starting on [place]; risks/benefits reviewed, pt agreed to trial. Start: [place] ER 300mg PO bedtime. X-ray of right hand results were normal; please see report. 04/21: Active on unit, attending groups. social with peers. Patient continues to report feeling depressed; patient discussed he does not plan to return to his mothers home but will either stay with his aunt or cousin. pt stated, No one cares about me . T/W and hospital social worker discussed how his mother has been calling daily to check on him and family are offering to let pt stay with them. Patient became upset regarding this topic and left office, slamming door behind him. pt continues to report suicidal ideation with plan on jumping in river. denies HI/VH/AH. denies side effects from starting [place]. Per hospital social worker who spoke to patients mother; pt relayed to his mother, he plans on bolting off unit to be able to go to the movies on Saturday. pt placed on 5 minute safety checks and fresh air restrictions. 04/22: Active on unit, attending groups. social with peers. Patient reports feeling better today; pt stated, I think the medication is helping. I'm feeling better. I want to go to my cousin's on Saturday. I plan on staying with my aunt in [place] and she's going to help me find a job . pt reports he is no longer feeling suicidal; pt stated, I don't want to . I got people to live for. I don't want to hurt my family . denies SI/HI/VH/AH. Continue current tx plan. 04/23: Patient reports feeling good today; pt stated, my dad came to visit me yesterday. I was very appreciative of him visiting. I'm trying to keep a positive mindset . denies SI/HI/VH/AH. labs ordered for Saturday morning. pt placed on 15 minute safety checks. DC fresh air restriction. Continue current tx plan. 04/24/25: Slightly irritated but, upon approach, which triggered by the peer who is hyperverbal and intrusive. Compliant with medications. Denies side effects. Trouble staying asleep. Denies other safety concerns. He stated he will stay with his cousin upon discharge. Seroquel increased up to 250 at bedtime, also increase melatonin up to 9 mg for insomnia, he does not want me to increase the lithium even knowing that this is a very low-dose. We will have lithium level drawn in the morning 04/24/25. Patient educated on: diagnosis, medication risk/benefits and therapeutic strategies Informed Consent: understands Reason for continued inpatient stay Substantial Risk for: med/psych decompensation Time Spent With Patient Time: Total time managing care of this patient today ____ minutes.
[2025-04-25 07:42] LABS: Lithium 0.39 mmol/L (0.60-1.20)
[2025-04-25 07:56] LABS: Anion Gap 11 (12-20); Blood Urea Nitrogen 19 mg/dL (9-16); Carbon Dioxide 29 mmol/L (22-29); Chloride 106 mmol/L (96-108); Creatinine Clr Calc Pharmacy 100.5; Estimated Glomerular Filt Rate > 60; Potassium 4.3 mmol/L (3.3-5.1); Sodium 142 mmol/L (135-145)
[2025-04-25 08:02] VITALS: BP 99/57; PULSE 71; RESP 16; TEMP 36.6; O2SAT 97
--- NOTE | 2025-04-25 13:10 | HO.PSYCHPN ---
Subjective Subjective Date of Service: 04/25/25 Reason For Visit: SI Subjective Notes: Conditional Voluntary Healthcare Proxy: No Guardianship: No Medical Problems Affecting Mental Status: No Interim History: Medical record and nursing notes reviewed; case discussed during rounds with team/nursing staff, and met with patient for supportive therapy/psychoeducation, as well as medication management. Patient slept for 7 hours, was medication compliant. Denies safety concerns, denies side effects. Continued to improve in mood, visible and attended groups. Medication Compliance: Yes Side effects from medications: No Attending Groups: Intermittent Review of Systems Acute medical concerns: No Medical Review of Systems: unchanged Review of Systems Review of Systems Yes all other systems are reviewed and are negative Constitutional: Reports no additional constitutional complaints Eyes: Reports no additional eye complaints Denies dizziness Cardiovascular: Reports no additional cardiovascular complaints Respiratory: Reports as per HPI Gastrointestinal: Reports no additional gastrointestinal complaints Musculoskeletal: Reports no additional musculoskeletal complaints Skin/Breast: Denies rash Reports system reviewed and no additional complaints, except as documented, Denies dizziness and Denies Sensory deficit (Neuro) Psychiatric: Denies anxiety Mental Status Exam Mental Status Exam Narrative: Pt is alert and oriented; behavior is cooperative and calm, pleasant, and cooperative, appears stated age, dressed in casual attire; mood is described good ; eye contact appropriate; Speech is normal rate, volume and not pressured; thought process is organized; Thought content is WNL, NO SI/SIB/HI/VH/AH. Diagnostics Vital Signs (24Hr): Vital Signs - 24 hr 04/24/25 20:00 04/25/25 08:02 Temperature 98.5 F 97.9 F Pulse Rate 79 71 Respiratory Rate 16 16 Blood Pressure 137/85 99/57 L Pulse Oximetry 98 97 Oxygen Delivery Method Room Air Room Air BMI result Body Mass Index 32.1 Labs 04/18/25 22:42 04/25/25 07:16 Labs: Laboratory Results - last 48 hr 04/25/25 07:16 Sodium 142 Potassium 4.3 Chloride 106 Carbon Dioxide 29 Anion Gap 11 L BUN 19 H Creatinine 1.21 Estim Creat Clear Calc 100.5 Estimated GFR > 60 TSH 1.71 [place] 0.39 L Imaging Radiology Impressions: ITS Impressions Hand X-Ray 04/19/25 15:12 IMPRESSION: Normal right hand. Electronically signed by: Juan A Dwyer MD 04/19/2025 04:19 PM EDT RP Medications Medications Current Medications Acetaminophen (Acetaminophen 325 Mg Tablet) 650 mg PO Q6H PRN PRN Reason: Headache/Pain, Scale 1-10 Al Hydroxide/Mg Hydroxide (Magnesium Hydrox/Alum Hydrox 30 Ml Oral.Susp) 30 ml PO Q6H PRN PRN Reason: Heartburn/Nausea Hydroxyzine HCl (Hydroxyzine Hcl 25 Mg Tablet) 25 mg PO Q6H PRN PRN Reason: mild anxiety Last Admin: 04/23/25 21:14 Dose: 25 mg [place] Carbonate ([place] Carbonate Er 300 Mg Tablet.Er) 300 mg PO BEDTIME URSZULA Last Admin: 04/24/25 22:34 Dose: 300 mg Magnesium Hydroxide (Milk Of Magnesia 30 Ml Oral.Susp) 30 ml PO DAILY PRN PRN Reason: Constipation Melatonin (Melatonin 3 Mg Tablet) 9 mg PO BEDTIME PRN PRN Reason: Insomnia Last Admin: 04/24/25 22:35 Dose: 9 mg Nicotine Polacrilex (Nicotine Polacrilex 2 Mg Gum) 4 mg BUCCAL Q2H PRN PRN Reason: Nicotine Cravings Quetiapine Fumarate (Quetiapine Fumarate 50 Mg Tablet) 50 mg PO BID PRN PRN Reason: Anxiety Last Admin: 04/23/25 22:15 Dose: 50 mg Quetiapine Fumarate 200 mg/ (Quetiapine Fumarate 50 mg) 250 mg PO BEDTIME URSZULA Last Admin: 04/24/25 22:34 Dose: 250 mg Trazodone HCl (Trazodone Hcl 50 Mg Tablet) 50 mg PO BEDTIME MRX1 PRN PRN Reason: Insomnia Allergies Allergies Allergy/AdvReac Type Severity Reaction Status Date / Time No Known Allergies Allergy Verified 04/18/25 22:44 Assessment & Plan Assessment & Plan (1) Bipolar disorder: Status: Acute Code(s): F31.9 - Bipolar disorder, unspecified (2) PTSD (post-traumatic stress disorder): Status: Acute Code(s): F43.10 - Post-traumatic stress disorder, unspecified Plan Patient is a 24-year-old male with history of bipolar disorder who was brought in by ambulance to ER due to suicidal ideation with a plan to drown himself in a nearby river secondary to a family argument. Plan: CV 15 minute safety checks Continue home medications Xray of right hand d/t pt reporting punching wall after phone call with mother prior to coming up to unit. Obtain collateral Referral to outpatient psychiatric providers Encourage groups Discharge planning 04/20: Active on unit, attending groups. Patient continues to report feeling depressed; pt stated, I'm still mad at my mom. I'm tired of feeling like I don't matter to her . pt continues to report suicidal ideation with plan on jumping in river. denies HI/VH/AH. Discussed starting on [place]; risks/benefits reviewed, pt agreed to trial. Start: [place] ER 300mg PO bedtime. X-ray of right hand results were normal; please see report. 04/21: Active on unit, attending groups. social with peers. Patient continues to report feeling depressed; patient discussed he does not plan to return to his mothers home but will either stay with his aunt or cousin. pt stated, No one cares about me . T/W and social services manager discussed how his mother has been calling daily to check on him and family are offering to let pt stay with them. Patient became upset regarding this topic and left office, slamming door behind him. pt continues to report suicidal ideation with plan on jumping in river. denies HI/VH/AH. denies side effects from starting [place]. Per social services manager who spoke to patients mother; pt relayed to his mother, he plans on bolting off unit to be able to go to the movies on Saturday. pt placed on 5 minute safety checks and fresh air restrictions. 04/22: Active on unit, attending groups. social with peers. Patient reports feeling better today; pt stated, I think the medication is helping. I'm feeling better. I want to go to my cousin's on Saturday. I plan on staying with my aunt in [place] and she's going to help me find a job . pt reports he is no longer feeling suicidal; pt stated, I don't want to . I got people to live for. I don't want to hurt my family . denies SI/HI/VH/AH. Continue current tx plan. 04/23: Patient reports feeling good today; pt stated, my dad came to visit me yesterday. I was very appreciative of him visiting. I'm trying to keep a positive mindset . denies SI/HI/VH/AH. labs ordered for Saturday. pt placed on 15 minute safety checks. DC fresh air restriction. Continue current tx plan. 04/24/25: Slightly irritated but, upon approach, which triggered by the peer who is hyperverbal and intrusive. Compliant with medications. Denies side effects. Trouble staying asleep. Denies other safety concerns. He stated he will stay with his cousin upon discharge. Seroquel increased up to 250 at bedtime, also increase melatonin up to 9 mg for insomnia, he does not want me to increase the lithium even knowing that this is a very low-dose. We will have lithium level drawn in the morning 04/24/25. 04/25/25: [place] 0.39 L. CBC WNL. Discussed with him regarding lithium dose, he wants no change. No other safety concerns. 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 Patient educated on: medication risk/benefits and therapeutic strategies Informed Consent: understands Reason for continued inpatient stay Substantial Risk for: med/psych decompensation Time Spent With Patient Time: Total time managing care of this patient today ____ minutes.
[2025-04-25 19:55] VITALS: BP 138/94; PULSE 77; TEMP 36.8; O2SAT 99
[2025-04-26 08:00] VITALS: BP 104/66; PULSE 65; RESP 16; TEMP 36.9; O2SAT 97
[2025-04-26 11:28] LABS: MANUAL DIFF FLAG NO
[2025-04-26 11:32] LABS: Hematocrit 48.8 % (42.0-52.0); Hemoglobin 16.7 g/dl (14.0-18.0); Imm Gran Abs Auto 0.02 X10*3/uL (0.00-0.03); Imm Gran Pct Auto 0.3 % (0.0-0.4); Lymphocytes Absolute Auto 2.1 X10*3/uL (1.2-4.9); Mean Corpuscular HGB Conc 34.2 g/dl (31.0-36.0); Mean Corpuscular Hemoglobin 28.4 pg (27.0-33.0); Mean Corpuscular Volume 83.1 fL (80.0-98.0); NRBC Abs Auto 0.000 X10*3/uL (0.0-0.012); NRBC Pct Auto 0.0 /100WBC (0.0-0.2); Platelet Count 250 X10*3/uL (160-400); Red Blood Count 5.87 X10*6/uL (4.60-5.80); White Blood Count 7.1 X10*3/uL (4.8-10.8)
[2025-04-26 11:38] LABS: Ammonia 38 umol/L (13-55)
[2025-04-26 11:48] LABS: Alanine Aminotransferase 84 U/L (0-40); Albumin Level 4.9 g/dL (3.5-5.0); Alkaline Phosphatase 136 U/L (39-117); Aspartate Amino Transferase 38 U/L (5-37); Total Protein 7.7 g/dL (6.5-8.0)
--- NOTE | 2025-04-26 12:21 | P.PNPSI_ITS ---
Subjective Subjective Date of Service: 04/26/25 Reason For Visit: SI Subjective Notes: Conditional Voluntary Interim History: Active on unit, social with peers. attending groups. Patient reports feeling good ; states he is looking forward to discharge tomorrow. pt stated, my friend is going to come pick me up and we are going to hangout until my aunt comes picks me up. My goal is to find a job and get my own place . denies SI/HI/VH/AH. Patient reports he is focused on staying positive. He plans on following up with his outpatient providers. Medication Compliance: Yes Side effects from medications: No Attending Groups: Yes Mental Status Exam Mental Status Exam Narrative: Pt is alert and oriented; behavior is cooperative and calm; dressed in casual attire; mood is described as good ; eye contact appropriate; Speech is normal rate, volume and not pressured; thought process is organized and goal directed; Thought content is on discharge; denies SI/HI/VH/AH. Diagnostics Vital Signs (24Hr): Vital Signs - 24 hr 04/25/25 19:55 04/26/25 08:00 Temperature 98.2 F 98.4 F Pulse Rate 77 65 Respiratory Rate 16 Blood Pressure 138/94 H 104/66 Pulse Oximetry 99 97 Oxygen Delivery Method Room Air Room Air BMI result Body Mass Index 32.1 Labs 04/26/25 11:24 04/25/25 07:16 Labs: Laboratory Results - last 48 hr 04/25/25 04/26/25 04/26/25 07:16 11:23 11:24 WBC 7.1 RBC 5.87 H Hgb 16.7 Hct 48.8 MCV 83.1 MCH 28.4 MCHC 34.2 RDW 12.9 Plt Count 250 MPV 10.2 Immature Gran % (Auto) 0.3 Neut % (Auto) 59.1 Lymph % (Auto) 29.4 [place] % (Auto) 7.0 Eos % (Auto) 3.2 Baso % (Auto) 1.0 Lymph # (Auto) 2.1 [place] # (Auto) 0.5 Eos # (Auto) 0.2 Baso # (Auto) 0.1 Abs Immat Gran (auto) 0.02 Absolute Neuts (auto) 4.2 Absolute Nucleated RBC 0.000 Nucleated RBC % (auto) 0.0 Sodium 142 Potassium 4.3 Chloride 106 Carbon Dioxide 29 Anion Gap 11 L BUN 19 H Creatinine 1.21 Estim Creat Clear Calc 100.5 Estimated GFR > 60 Total Bilirubin 0.7 Direct Bilirubin 0.2 AST 38 H ALT 84 H Alkaline Phosphatase 136 H Ammonia 38 Total Protein 7.7 Albumin 4.9 TSH 1.71 [place] 0.39 L Imaging Radiology Impressions: ITS Impressions Hand X-Ray 04/19/25 15:12 IMPRESSION: Normal right hand. Electronically signed by: Juan A Dwyer MD 04/19/2025 04:19 PM EDT RP Medications Medications Current Medications Acetaminophen (Acetaminophen 325 Mg Tablet) 650 mg PO Q6H PRN PRN Reason: Headache/Pain, Scale 1-10 Al Hydroxide/Mg Hydroxide (Magnesium Hydrox/Alum Hydrox 30 Ml Oral.Susp) 30 ml PO Q6H PRN PRN Reason: Heartburn/Nausea Hydroxyzine HCl (Hydroxyzine Hcl 25 Mg Tablet) 25 mg PO Q6H PRN PRN Reason: mild anxiety Last Admin: 04/25/25 20:20 Dose: 25 mg [place] Carbonate ([place] Carbonate Er 300 Mg Tablet.Er) 300 mg PO BEDTIME URSZULA Last Admin: 04/25/25 21:56 Dose: 300 mg Magnesium Hydroxide (Milk Of Magnesia 30 Ml Oral.Susp) 30 ml PO DAILY PRN PRN Reason: Constipation Melatonin (Melatonin 3 Mg Tablet) 9 mg PO BEDTIME PRN PRN Reason: Insomnia Last Admin: 04/25/25 21:56 Dose: 9 mg Nicotine Polacrilex (Nicotine Polacrilex 2 Mg Gum) 4 mg BUCCAL Q2H PRN PRN Reason: Nicotine Cravings Quetiapine Fumarate (Quetiapine Fumarate 50 Mg Tablet) 50 mg PO BID PRN PRN Reason: Anxiety Last Admin: 04/23/25 22:15 Dose: 50 mg Quetiapine Fumarate 200 mg/ (Quetiapine Fumarate 50 mg) 250 mg PO BEDTIME URSZULA Last Admin: 04/25/25 21:56 Dose: 250 mg Trazodone HCl (Trazodone Hcl 50 Mg Tablet) 50 mg PO BEDTIME MRX1 PRN PRN Reason: Insomnia Allergies Allergies Allergy/AdvReac Type Severity Reaction Status Date / Time No Known Allergies Allergy Verified 04/18/25 22:44 Assessment & Plan Assessment & Plan (1) Bipolar disorder: Status: Acute Code(s): F31.9 - Bipolar disorder, unspecified (2) PTSD (post-traumatic stress disorder): Status: Acute Code(s): F43.10 - Post-traumatic stress disorder, unspecified Plan Patient is a 24-year-old male with history of bipolar disorder who was brought in by ambulance to ER due to suicidal ideation with a plan to drown himself in a nearby river secondary to a family argument. Plan: CV 15 minute safety checks Continue home medications Xray of right hand d/t pt reporting punching wall after phone call with mother prior to coming up to unit. Obtain collateral Referral to outpatient psychiatric providers Encourage groups Discharge planning 04/20: Active on unit, attending groups. Patient continues to report feeling depressed; pt stated, I'm still mad at my mom. I'm tired of feeling like I don't matter to her . pt continues to report suicidal ideation with plan on jumping [place] river. denies HI/VH/AH. Discussed starting on [place]; risks/benefits reviewed, pt agreed to trial. Start: [place] ER 300mg PO bedtime. X-ray of right hand results were normal; please see report. 04/21: Active on unit, attending groups. social with peers. Patient continues to report feeling depressed; patient discussed he does not plan to return to his mothers home but will either stay with his aunt or cousin. pt stated, No one cares about me . T/W and secondary social studies teacher discussed how his mother has been calling daily to check on him and family are offering to let pt stay with them. Patient became upset regarding this topic and left office, slamming door behind him. pt continues to report suicidal ideation with plan on jumping [place] river. denies HI/VH/AH. denies side effects from starting [place]. Per secondary social studies teacher who spoke to patients mother; pt relayed to his mother, he plans on bolting off unit to be able to go to the movies on Saturday. pt placed on 5 minute safety checks and fresh air restrictions. 04/22: Active on unit, attending groups. social with peers. Patient reports feeling better today; pt stated, I think the medication is helping. I'm feeling better. I want to go to my cousin's on Saturday. I plan on staying with my aunt in [place] and she's going to help me find a job . pt reports he is no longer feeling suicidal; pt stated, I don't want to . I got people to live for. I don't want to hurt my family . denies SI/HI/VH/AH. Continue current tx plan. 04/23: Patient reports feeling good today; pt stated, my dad came to visit me yesterday. I was very appreciative of him visiting. I'm trying to keep a positive mindset . denies SI/HI/VH/AH. labs ordered for Saturday. pt placed on 15 minute safety checks. DC fresh air restriction. Continue current tx plan. 04/24/25: Slightly irritated but, upon approach, which triggered by the peer who is hyperverbal and intrusive. Compliant with medications. Denies side effects. Trouble staying asleep. Denies other safety concerns. He stated he will stay with his cousin upon discharge. Seroquel increased up to 250 at bedtime, also increase melatonin up to 9 mg for insomnia, he does not want me to increase the lithium even knowing that this is a very low-dose. We will have lithium level drawn in the morning 04/24/25. 04/25/25: [place] 0.39 L. CBC WNL. Discussed with him regarding lithium dose, he wants no change. No other safety concerns. 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 04/26: Active on unit, social with peers. attending groups. Patient reports feeling good ; states he is looking forward to discharge tomorrow. pt stated, my friend is going to come pick me up and we are going to hangout until my aunt comes picks me up. My goal is to find a job and get my own place . denies SI/HI/VH/AH. Patient reports he is focused on staying positive. He plans on following up with his outpatient providers. Patient educated on: diagnosis, medication risk/benefits and therapeutic strategies Reason for continued inpatient stay Substantial Risk for: stable for discharge Time Spent With Patient Time: Total time managing care of this patient today _20___ minutes.
[2025-04-26 20:51] VITALS: BP 126/79; PULSE 85; RESP 16; O2SAT 97
[2025-04-27 07:54] VITALS: BP 125/69; PULSE 79; RESP 16; TEMP 36.4; O2SAT 99
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
== END 2025-04-27 10:39 | disposition home or self-care (01) | DRG 753 ==
LOC: HO.ED 23:54 → HO.PADLT16 04-19 12:04
PROVIDERS: Emergency Medicine; Admitting Provider Registered Nurse; Emergency Provider Emergency Medicine; PCP Internal Medicine; Responsible Provider Registered Nurse; Visit Provider Psychiatry & Neurology Psychiatry
DX: F31.9 Bipolar disorder, unspecified (principal); R45.851 Suicidal ideations; F43.10 Post-traumatic stress disorder, unspecified; Z79.899 Other long term (current) drug therapy
CPT/HCPCS: 36415; 73130; 80051; 80053; 80061; 80076; 80178; 80307; 81003; 82140; 82565; 83036; 84443; 84520; 85025; 93005; 99285; S9485

== ENCOUNTER → 2025-04-19 09:24 | Outpatient (BNV) | payer OTHER, SELFPAY | PROVIDERS: Admitting Provider Registered Nurse; Emergency Provider Emergency Medicine; PCP Internal Medicine; Responsible Provider Registered Nurse; Visit Provider Internal Medicine Cardiovascular Disease | DX: I45.10 Unspecified right bundle-branch block (principal); I49.9 Cardiac arrhythmia, unspecified | CPT/HCPCS: 93010 ==

== ENCOUNTER 2025-04-19 12:01 | Outpatient (BNV) | payer OTHER, SELFPAY | END 2025-04-19 15:12 | PROVIDERS: Admitting Provider Registered Nurse; Emergency Provider Emergency Medicine; PCP Internal Medicine; Responsible Provider Registered Nurse; Visit Provider Radiology Diagnostic Radiology | DX: M79.641 Pain in right hand (principal) | CPT/HCPCS: 73130 ==

== ENCOUNTER → 2025-04-19 12:01 | Outpatient (BNV) | payer OTHER, SELFPAY | PROVIDERS: Admitting Provider Registered Nurse; Emergency Provider Emergency Medicine; PCP Internal Medicine; Responsible Provider Registered Nurse; Visit Provider Registered Nurse | DX: F31.4 Bipolar disorder, current episode depressed, severe, without psychotic features (principal); F43.11 Post-traumatic stress disorder, acute | CPT/HCPCS: 99231; 99232 ==